=== PATIENT | female | born 1975 | race Two or more races ===

== ENCOUNTER → 2018-02-15 | Outpatient (CLI) | payer OTHER | END | disposition home or self-care (01) | LOC: CFH 16:08 | PROVIDERS: ATTEND Nurse Practitioner Family | DX: R22.32 Localized swelling, mass and lump, left upper limb (principal) ==

== ENCOUNTER 2019-04-19 17:42 | Emergency (ER) | payer SELFPAY ==
[~2019-04-19] VITALS: Ht 152.4 cm; Wt 61.0 kg
[2019-04-19 18:08] VITALS: BP 129/77
[2019-04-19 19:05] LABS: BASOPHILS # (AUTO) 0.05 x10^3/uL (0-0.1); BASOPHILS % (AUTO) 1 % (0-1); EOSINOPHILS % (AUTO) 3 % (1-7); LYMPHOCYTES % (AUTO) 32 % (22-44); MD NO; MEAN CORPUSCULAR HGB CONC 32.8 g/dL (32.4-35.8); MEAN CORPUSCULAR VOLUME 85.3 fL (80-100); MEAN PLATELET VOLUME 9.7 fL (7.4-10.4); MONOCYTES # (AUTO) 0.54 x10^3/uL (0.2-0.8); MONOCYTES % (AUTO) 7 % (2-9); NEUTROPHILS # (AUTO) 4.61 x10^3/uL (1.8-6.8); NEUTROPHILS % (AUTO) 58 % (42-75); PLATELET COUNT 147 x10^3/uL (130-400); RED BLOOD COUNT 4.44 x10^6/uL (3.82-5.3); RED CELL DISTRIBUTION WIDTH 12.9 % (9.6-15.2)
[2019-04-19 19:16] LABS: ANION GAP 5 mmol/L (5-15); CALCIUM 8.7 mg/dL (8.5-10.1); CHLORIDE 108 mmol/L (98-107); CREATININE 0.73 mg/dL (0.55-1.02)
[2019-04-19] MEDS ORDERED: RIVAROXABAN 20 MG TABLET PO ONE (20:30)
[2019-04-19] MEDS ORDERED: RIVAROXABAN 20 MG TABLET ONE (20:38)
[2019-04-19] MEDS ORDERED: APIXABAN 5 MG TABLET ONE (20:47)
[2019-04-19] MEDS ORDERED: APIXABAN 5 MG TABLET PO ONE (21:00)
== END 2019-04-19 21:10 | disposition home or self-care (01) ==
LOC: ED 20:53
DX: I82.431 Acute embolism and thrombosis of right popliteal vein (principal); I82.441 Acute embolism and thrombosis of right tibial vein
CPT/HCPCS: 36415; 80048; 85025; 99284